=== PATIENT | male | born 1975 | race Caucasian/White ===

== ENCOUNTER 2020-06-30 12:28 | Outpatient (REF) | payer OTHER, SELFPAY ==
[2020-06-30 13:59] LABS: Hematocrit 44.2 % (42-52); Mean Corpuscular HGB Conc 31.7 g/dl (31.0-36.0); Mean Corpuscular Hemoglobin 28.3 pg (27.0-33.0); Mean Corpuscular Volume 89.3 fL (80-98); Mean Platelet Volume 9.4 fL (9.4-12.4); Platelet Count 251 X10*3/uL (160-400); Red Blood Count 4.95 X10*6/uL (4.60-5.80); Red Cell Distribution Width 12.9 % (11.0-16.0); White Blood Count 5.2 X10*3/uL (4.8-10.8)
[2020-06-30 14:28] LABS: Alanine Aminotransferase 41 U/L (0-40); Albumin Level 4.3 g/dL (3.5-5.0); Alkaline Phosphatase 53 U/L (39-117); Anion Gap 12 (12-20); Aspartate Amino Transferase 22 U/L (5-37); Bilirubin Total 1.3 mg/dL (0.0-1.0); Blood Urea Nitrogen 14 mg/dL (9-16); Carbon Dioxide 28 mmol/L (22-29); Chloride 105 mmol/L (96-108); Cholesterol 259 mg/dL; Estimated Glomerular Filt Rate > 60; Glucose Fasting 95 mg/dL (60-99); HDL Cholesterol 48 mg/dL; LDL Cholesterol Calculated 178 mg/dl; Potassium 4.8 mmol/l (3.3-5.1); Sodium 140 mmol/L (135-145); Total Protein 6.6 g/dL (6.5-8.0); Triglycerides 167 mg/dL
== END 2020-06-30 12:29 | disposition home or self-care (01) ==
LOC: HO.HMGCLDS 12:28
PROVIDERS: PCP Internal Medicine; Visit Provider Internal Medicine
DX: Z00.00 Encounter for general adult medical examination without abnormal findings (principal); M25.562 Pain in left knee
CPT/HCPCS: 36415; 80053; 80061; 85027

== ENCOUNTER 2021-03-15 12:29 | Outpatient (REF) | payer BC, SELFPAY ==
[2021-03-15 14:26] LABS: Uric Acid 6.5 mg/dL (3.4-7.0)
== END 2021-03-15 12:30 | disposition home or self-care (01) ==
LOC: HO.HMGCLDS 12:29
PROVIDERS: PCP Internal Medicine; Visit Provider Internal Medicine
DX: M10.9 Gout, unspecified (principal)
CPT/HCPCS: 36415; 84550

== ENCOUNTER 2021-03-22 09:35 | Outpatient (REF) | payer BC, SELFPAY ==
--- NOTE | ~2021-03-22 | XR_ITS ---
EXAMINATION: XR FOOT, RIGHT CLINICAL INFORMATION: Right 1st metatarsophalangeal joint pain. COMPARISON: None. TECHNIQUE: AP, lateral, and oblique views of the right foot. FINDINGS: No acute fracture or dislocation. No significant joint space narrowing or marginal osteophytes. Soft tissue swelling over the medial aspect of the 1st metatarsal head with faint cortical defects medially. Findings could represent periarticular erosions. No abnormal soft tissue calcification. XR/XR foot RT min 3V IMPRESSION: Soft tissue swelling with focal cortical erosions medial to the 1st metatarsal head. No soft tissue calcification. Findings can be seen in the setting of gout arthritis.
== END 2021-03-22 09:36 | disposition home or self-care (01) ==
LOC: HO.HMGCX 09:35
PROVIDERS: PCP Internal Medicine; Visit Provider Internal Medicine
DX: M79.674 Pain in right toe(s) (principal)
CPT/HCPCS: 73630

== ENCOUNTER 2021-07-22 08:39 | Outpatient (REF) | payer BC, SELFPAY ==
[2021-07-22 11:53] LABS: Hemoglobin 14.2 g/dl (14.0-18.0); Mean Corpuscular HGB Conc 32.3 g/dl (31.0-36.0); Mean Corpuscular Volume 86.8 fL (80.0-98.0); Mean Platelet Volume 9.7 fL (9.4-12.4); Platelet Count 284 X10*3/uL (160-400); Red Blood Count 5.07 X10*6/uL (4.60-5.80); Red Cell Distribution Width 13.2 % (11.0-16.0); White Blood Count 5.7 X10*3/uL (4.8-10.8)
[2021-07-22 12:42] LABS: Alanine Aminotransferase 59 U/L (0-40); Albumin Level 4.4 g/dL (3.5-5.0); Alkaline Phosphatase 65 U/L (39-117); Anion Gap 15 (12-20); Aspartate Amino Transferase 39 U/L (5-37); Blood Urea Nitrogen 14 mg/dL (9-16); Calcium 9.5 mg/dL (8.4-10.2); Carbon Dioxide 24 mmol/L (22-29); Chloride 105 mmol/L (96-108); Cholesterol 241 mg/dL; Estimated Glomerular Filt Rate > 60; Glucose Fasting 103 mg/dL (60-99); HDL Cholesterol 41 mg/dL; LDL Cholesterol Calculated 164 mg/dl; Potassium 4.4 mmol/L (3.3-5.1); Sodium 140 mmol/L (135-145); Total Protein 6.9 g/dL (6.5-8.0); Triglycerides 184 mg/dL
== END 2021-07-22 08:40 | disposition home or self-care (01) ==
LOC: HO.HMGCLDS 08:39
PROVIDERS: PCP Internal Medicine; Visit Provider Internal Medicine
DX: E78.5 Hyperlipidemia, unspecified (principal)
CPT/HCPCS: 36415; 80053; 80061; 85027

== ENCOUNTER 2022-05-10 07:34 | Outpatient (REF) | payer BC, SELFPAY ==
[2022-05-10 12:20] LABS: Alanine Aminotransferase 43 U/L (0-40); Albumin Level 4.5 g/dL (3.5-5.0); Alkaline Phosphatase 70 U/L (39-117); Anion Gap 17 (12-20); Aspartate Amino Transferase 32 U/L (5-37); Bilirubin Total 1.9 mg/dL (0.0-1.0); Blood Urea Nitrogen 23 mg/dL (9-16); Calcium 9.3 mg/dL (8.4-10.2); Carbon Dioxide 24 mmol/L (22-29); Chloride 107 mmol/L (96-108); Cholesterol 301 mg/dL; Estimated Glomerular Filt Rate > 60; Glucose Fasting 112 mg/dL (60-99); HDL Cholesterol 45 mg/dL; LDL Cholesterol Calculated 220 mg/dl; Potassium 4.7 mmol/L (3.3-5.1); Sodium 143 mmol/L (135-145); Total Protein 7.1 g/dL (6.5-8.0); Triglycerides 184 mg/dL
== END 2022-05-10 07:35 | disposition home or self-care (01) ==
LOC: HO.HMGCLDS 07:34
PROVIDERS: PCP Internal Medicine; Visit Provider Internal Medicine
DX: E78.5 Hyperlipidemia, unspecified (principal)
CPT/HCPCS: 36415; 80053; 80061

== ENCOUNTER 2022-07-09 11:01 | Outpatient (REF) | payer BC, SELFPAY ==
[2022-07-09 13:47] LABS: Estimated Average Glucose 111 mg/dL; Hemoglobin A1c % 5.5 %
[2022-07-09 13:52] LABS: Alanine Aminotransferase 46 U/L (0-40); Albumin Level 4.6 g/dL (3.5-5.0); Alkaline Phosphatase 70 U/L (39-117); Anion Gap 15 (12-20); Aspartate Amino Transferase 33 U/L (5-37); Bilirubin Total 2.3 mg/dL (0.0-1.0); Blood Urea Nitrogen 12 mg/dL (9-16); Calcium 9.6 mg/dL (8.4-10.2); Carbon Dioxide 26 mmol/L (22-29); Chloride 106 mmol/L (96-108); Cholesterol 236 mg/dL; Estimated Glomerular Filt Rate > 60; Glucose Fasting 96 mg/dL (60-99); HDL Cholesterol 44 mg/dL; LDL Cholesterol Calculated 157 mg/dl; Potassium 4.4 mmol/L (3.3-5.1); Sodium 143 mmol/L (135-145); Triglycerides 177 mg/dL
== END 2022-07-09 11:02 | disposition home or self-care (01) ==
LOC: HO.HMGCLDS 11:01
PROVIDERS: PCP Internal Medicine; Visit Provider Internal Medicine
DX: E78.5 Hyperlipidemia, unspecified (principal)
CPT/HCPCS: 36415; 80053; 80061; 83036

== ENCOUNTER 2022-08-02 10:18 | Outpatient (REF) | payer BC, SELFPAY | END 2022-08-02 10:19 | disposition home or self-care (01) | LOC: HO.HMGCX 10:18 | PROVIDERS: PCP Internal Medicine; Visit Provider Internal Medicine | DX: Z13.89 Encounter for screening for other disorder (principal) ==

== ENCOUNTER 2022-08-04 09:27 | Outpatient (REF) | payer BC, SELFPAY ==
--- NOTE | ~2022-08-04 | US_ITS ---
EXAMINATION: US ABDOMEN COMPLETE CLINICAL INFORMATION: Other specified abnormal findings of blood chemistry. COMPARISON: None TECHNIQUE: Real-time imaging of the abdominal viscera. FINDINGS: PANCREAS: The pancreas is obscured by overlying gas. ABDOMINAL AORTA: The proximal, mid, and distal segments are normal in caliber. INFERIOR VENA CAVA: Visualized portions are normal. LIVER: The liver is normal in size. The liver contour is normal. There is increased liver echogenicity. No focal lesion seen. No focal hepatic lesion. There is no intrahepatic biliary duct dilatation seen. GALLBLADDER: There are small echogenic lesions along the inner gallbladder wall, likely small polyps. The largest polyp measures 0.22 cm. The gallbladder is physiologically distended without evidence of stones, sludge, wall thickening or pericholecystic fluid. COMMON BILE DUCT: Normal in caliber measuring 0.39 cm in diameter. RIGHT KIDNEY: Normal. No hydronephrosis. No renal calculi or focal parenchymal lesions. The kidney measures 10.9 cm in maximum dimension. LEFT KIDNEY: Normal. No hydronephrosis. No renal calculi or focal parenchymal lesions. The kidney measures 11.1 cm in maximum dimension. SPLEEN: Normal. The spleen measures 11.3 cm in maximum dimension. FREE FLUID: None. US/US abdomen complete IMPRESSION: Mild hepatic steatosis without focal lesion. Suspect small gallbladder polyps. No echogenic calculi or wall thickening seen.
== END 2022-08-04 09:28 | disposition home or self-care (01) ==
LOC: HO.HMGCX 09:27
PROVIDERS: PCP Internal Medicine; Visit Provider Internal Medicine
DX: R79.89 Other specified abnormal findings of blood chemistry (principal)
CPT/HCPCS: 76700

== ENCOUNTER 2022-08-19 13:00 | Outpatient (RCR) | payer BC, SELFPAY ==
--- NOTE | 2022-07-22 15:08 | MHC.PT.EP ---
[facility] [place] Office [place] Office [place] Office [address] Mahogany Malik [address] [phone] F: [phone] F: [phone] F: [phone] F: [phone] Physical Therapy Plan of Care Date of Evaluation: Date of Surgery: Diagnosis: low back pain Assessment: 47 y/o M referred to PT with low back pain. He has intermittent LBP for years that is worse with lifting, reaching, and sleeping. He presents with postural dysfunction secondary to decreased muscle length of ITB/hip flexors/quads, poor posture, decreased hip/core strength, and decreased proprioceptive awareness. Recommend PT 1x/week for 5 weeks to address impairments, implement HEP, and optimize functional mobility. Frequency and Duration: The patient will be seen 1x/week for 5 weeks Short Term Goals: 3 weeks Compliant with HEP I with use of lumbar roll in sitting Improve quad length to > 100* B (IR 90*) Care Home Goals: 5 weeks I with HEP and self management of sx Demonstrate lumbar extension ROM to >/= 50% to faciliate reaching overhead with pain < 3/10 Improve B hip strength to 4+/5 to faciliate lifting Treatment Plan: Modalities to reduce pain, spasms and effusion. Manual therapy to restore motion and function. Therapeutic exercise to improve strength and flexibility. Neuromuscular re-education for posture and balance. Therapeutic activities to return to functional activities of daily living. Electronically signed by: Bri Morris PT Please sign and return to therapist. Thank you for your referral.
--- NOTE | 2022-09-19 07:10 | MHC.PT.DC ---
[facility] [place] Office [place] Office [place] Office [address] Mahogany Malik [address] [phone] F: [phone] F: [phone] F: [phone] F: [phone] Physical Therapy Discharge Report Diagnosis: low back pain Date of Surgery: Date of Evaluation: 07/22/22 Date of Discharge: 09/19/22 Treatments to Date: 4 Cancellations to Date: 1 No Shows to Date: 0 Discharge Status: Independent with HEP Discharge Summary: Pt did not f/u with further visits but at time of last attended visit, he was reporting improvements in pain and I with HEP. D/c at this time. Electronically signed by: Bri Morris PT, DPT Please sign and return to therapist. Thank you for your referral.
== END 2022-09-19 07:11 | disposition home or self-care (01) ==
LOC: HO.PTCHIC 13:00
PROVIDERS: PCP Internal Medicine; Visit Provider Internal Medicine
DX: M54.50 Low back pain, unspecified (principal)
CPT/HCPCS: 97110; 97140; 97161

== ENCOUNTER 2022-08-20 10:09 | Outpatient (REF) | payer BC, SELFPAY ==
[2022-08-20 11:32] LABS: Alanine Aminotransferase 40 U/L (0-40); Albumin Level 4.4 g/dL (3.5-5.0); Alkaline Phosphatase 69 U/L (39-117); Aspartate Amino Transferase 29 U/L (5-37); Bilirubin Direct 0.7 mg/dL (0.0-0.5); Bilirubin Total 2.8 mg/dL (0.0-1.0); Cholesterol 169 mg/dL; HDL Cholesterol 39 mg/dL; LDL Cholesterol Calculated 109 mg/dl; Total Protein 6.6 g/dL (6.5-8.0); Triglycerides 105 mg/dL
[2022-08-24 05:26] LABS: HBS Num1 0.78 mIU/mL (0-7.99); HBc Num1 0.05 S/CO (0.00-0.79); Hepatitis A Antibody IgM 0.17 Index (0-0.79); Hepatitis B Core Antibody Nonreactive (Nonreactive); ~HepC Num1 0.21 S/CO (0.00-0.79); ~Hepatitis A Antibody IgM Nonreactive (Nonreactive); ~Hepatitis B Surface Antibody NONREACTIVE (Nonreactive); ~Hepatitis C Antibody Nonreactive (Nonreactive)
[2022-08-24 06:04] LABS: HBsAGNum1 0.36 S/CO (0.00-0.99); Hepatitis B Surface Antigen Negative (Negative)
== END 2022-08-20 10:10 | disposition home or self-care (01) ==
LOC: HO.HMGCLDS 10:09
PROVIDERS: PCP Internal Medicine; Visit Provider Internal Medicine
DX: Z00.00 Encounter for general adult medical examination without abnormal findings (principal); R79.89 Other specified abnormal findings of blood chemistry
CPT/HCPCS: 36415; 80061; 80076; 86704; 86706; 86709; 86803; 87340

== ENCOUNTER → 2022-09-27 10:04 | Outpatient (BNVA) | payer BC, SELFPAY | PROVIDERS: PCP Internal Medicine; Visit Provider Nurse Practitioner Family | DX: Z13.89 Encounter for screening for other disorder (principal) ==

== ENCOUNTER 2023-02-16 10:07 | Day surgery (SDC) | payer BC, SELFPAY ==
[2023-02-14 12:59] VITALS: BMI 28.0
--- NOTE | 2023-02-15 10:35 | P.CONAN_ITS ---
Documented by User: Abeba Hewitt NP 02/15/23 10:35 HPI - Anesthesia Eval Consult details Narrative: 48yo M for Colonoscopy PMFSH Active Problems Active Problems: All Active Problems (Updated 02/14/23 @ 12:59 by Mechelle Escamilla RN) Bursitis (Acute) Lower back pain (Acute) Elevated LFTs (Acute) Hyperglycemia (Acute) Hyperlipidemia (Acute) Toe pain, right (Acute) Gout attack (Acute) Annual physical exam (Acute) Knee pain, left (Acute) Past Medical History Medical History Annual physical exam Fatty liver Gout attack Hyperlipidemia Knee pain, left Toe pain, right Family History Family History Father Heart attack Diabetes Mother HTN (hypertension) Surgical History Surgical History H/O left knee surgery Social History Social History Housing: House Are you a primary child care leader to a significant other at home: No Do you presently have visiting nurse or other home services: No Patient Tobacco Use Status: Former Tobacco user Quit Date: 10/2020 Years Smoked: 20 years e-Cigarette/Vaping Use: Never Used Have you been hit, kicked, punched, or otherwise hurt by someone within the past year? If so, by whom?: No Are you DNR?: No Advance Directives: No Advance Directives Information Provided: Yes Recently lost weight without trying: No Eating poorly because of decreased appetite: No Nutrition Risks: No Nutritional Risk Current occupational status: employed Cognitive needs: No Hearing needs: No Vision needs: No Meds Allergies Allergy/AdvReac Type Severity Reaction Status Date / Time No Known Allergies Allergy Verified 09/27/22 10:16 Exam Exam Date and Time: February 15, 2023 1035 Height,Weight and Vital Signs: Height 6 ft 2 in Weight 98.883 kg Assessment and Plan Assessment Anesthesia Assessment: Chart Reviewed Documented by User: Albert Amador MD 02/16/23 10:52 [facility] Past Medical History Medical History Annual physical exam Fatty liver Gout attack Hyperlipidemia Knee pain, left Toe pain, right Family History Family History Father Heart attack Diabetes Mother HTN (hypertension) Family history of problems with anesthesia: No Surgical History Surgical History H/O left knee surgery History of Problems with Anesthesia: No Social History Social History Housing: House Are you a primary child care leader to a significant other at home: No Do you presently have visiting nurse or other home services: No Patient Tobacco Use Status: Former Tobacco user Quit Date: 10/2020 Years Smoked: 20 years e-Cigarette/Vaping Use: Never Used Have you been hit, kicked, punched, or otherwise hurt by someone within the past year? If so, by whom?: No Are you DNR?: No Advance Directives: No Advance Directives Information Provided: Yes Recently lost weight without trying: No Eating poorly because of decreased appetite: No Nutrition Risks: No Nutritional Risk Current occupational status: employed Cognitive needs: No Hearing needs: No Vision needs: No Meds Allergies Allergy/AdvReac Type Severity Reaction Status Date / Time No Known Allergies Allergy Verified 09/27/22 10:16 Exam Airway Mallampati Class: I TM Dist: >3cm Neck ROM: Full Denture: Upper Assessment and Plan Final Anesthetic Review Family History of Problems with Anesthesia: No History of Problems with Anesthesia: No NPO: Yes ASA Class: II Final Preanesthetic Review: No Changes in Pt Med Stat, Meds/Allgs Chart Reviewed, Consent Obtained/Reviewed and Anes Risks/Benef Reviewed Patient Risk: Low Procedure Risk: Low Assessment/Block/Sedation in SS: Assess/Block/Sedation-SS Anesthetic Plan Anesthetic Plan: MAC: Disposition: Standard PACU
[2023-02-16 10:31] VITALS: BP 130/91; PULSE 75; RESP 18; TEMP 36.1; O2SAT 95
--- NOTE | 2023-02-16 10:45 | P.HPSUR_ITS ---
Pre-Procedural Eval Section A Date of Service: 02/16/23 Section B Chief Complaint: screening Relevant Family History (Specify if Yes): No Relevant Social History: None Present Medications: see Short Stay Collaborative assessment Medical History: Significant History (Fatty liver Gout attack Hyperlipidemia Knee pain, left Toe pain, right) History of Previous Operations: Relevant previous surgery/procedure and date(s) (knee suregery) Allergies: Allergies Allergy/AdvReac Type Severity Reaction Status Date / Time No Known Allergies Allergy Verified 09/27/22 10:16 Review of Systems Sugical H&P ROS: Negative: Constitution, Cardiovascular, Respiratory, Neurol ogical, Psychiatric, Hem-Onc, Allergic/Immunologic, Gastrointestinal, Genitourinary, Musculoskeletal, Integumentary, Endocrine and Eyes/Ears/Nose/Throat Exam Surgical H&P Exam: Normal: HEENT, Normal: Heart, Normal: Lungs, Normal: Extremities, Normal: Abdomen, Normal: Skin and Normal: Neurological Plan Diagnosis/Plan: Unchanged I have reviewed the history and physical and performed a pertinent physical examination on my patient. No changes have occurred unless specified. Time Spent With Patient Time: Total time managing care of this patient today ____ minutes.
--- NOTE | 2023-02-16 11:12 | W.PM.OPN ---
Operative Note Operative Note Date of Service: 02/16/23 Narrative: Operative Information Procedure Description: Colonoscopy Indication: screening Anesthesia: MAC COLONOSCOPY Instrument: Olympus variable stiffness pediatric scope 190L Colonoscopy Monitoring: Vital signs and clinical assessment, continuous EKG monitoring, Pulse oximetry, Carbon Dioxide monitoring and blood pressure monitoring were done throughout the procedure. Colon withdrawal time was 8 minutes. Procedure: The patient was placed in the left lateral decubitis position and pre-procedure medications were administered. After a digital rectal examination of the ano-rectum, the video colonoscope was inserted into the rectum and advanced through the colon to the cecum/TI. The colonoscope was slowly withdrawn in a retrograde panoramic fashion and the colon mucosa was carefully examined including a retroflexed view of the rectum. Findings and interventions are described below. Procedure Difficulty: easy Findings: Terminal Ileum-normal Cecum: diminutive polyp3-5 mm removed with cold forceps Ascending Colon: normal Transverse Colon -normal Descending Colon:normal Sigmoid Colon: normal Rectum: Retroflexion with small internal hemorrhoids, grade I Anorectum - normal Colon preparation: [place] Bowel Preparation Scale Right colon; 2 Transverse colon: 2 Left colon; 3 (0 = Unprepared colon segment with mucosa not seen due to solid stool that cannot be cleared. 1 = Portion of mucosa of the colon segment seen, but other areas of the colon segment not well seen due to staining, residual stool and/or opaque liquid. 2 = Minor amount of residual staining, small fragments of stool and/or opaque liquid, but mucosa of colon segment seen well. 3 = Entire mucosa of colon segment seen well with no residual staining, small fragments of stool or opaque liquid) Impression and Post Procedure Diagnosis: polyp internal hemorrhoids Plan: High fiber diet leaflet Avoid straining at stool, epsom salts and sitz bath, anusol supps or cream Repeat Colonoscopy in 5-7 years due to polyp or earlier if clinically indicated Above findings were reviewed with the patient and relevant handouts were provided if indicated.
[2023-02-16 11:15] VITALS: BP 108/77; PULSE 72; RESP 16; TEMP 36.1; O2SAT 98
[2023-02-16 11:30] VITALS: BP 122/90; PULSE 66; RESP 16; TEMP 36.9; O2SAT 96
== END 2023-02-16 11:59 | disposition home or self-care (01) ==
PROVIDERS: PCP Internal Medicine; Visit Provider Internal Medicine Gastroenterology
PROC: 0DJD8ZZ Inspection of Lower Intestinal Tract, Via Natural or Artificial Opening Endoscopic (ICD-10-PCS; CPT 45378; principal; 2023-02-16 11:40)
DX: Z12.11 Encounter for screening for malignant neoplasm of colon (principal); D12.0 Benign neoplasm of cecum; K64.0 First degree hemorrhoids; K76.0 Fatty (change of) liver, not elsewhere classified; M10.9 Gout, unspecified; E78.5 Hyperlipidemia, unspecified; Z87.891 Personal history of nicotine dependence
CPT/HCPCS: 45380; 88305

== ENCOUNTER → 2023-03-03 12:01 | Outpatient (BNVA) | payer BC, SELFPAY | PROVIDERS: PCP Internal Medicine; Visit Provider Nurse Practitioner Family ==

== ENCOUNTER 2023-09-02 10:17 | Outpatient (REF) | payer BC, SELFPAY ==
[2023-09-02 11:49] LABS: Alanine Aminotransferase 44 U/L (0-40); Albumin Level 4.3 g/dL (3.5-5.0); Alkaline Phosphatase 73 U/L (39-117); Anion Gap 12 (12-20); Aspartate Amino Transferase 32 U/L (5-37); Bilirubin Total 1.3 mg/dL (0.0-1.0); Blood Urea Nitrogen 12 mg/dL (9-16); Calcium 9.3 mg/dL (8.4-10.2); Carbon Dioxide 26 mmol/L (22-29); Chloride 108 mmol/L (96-108); Cholesterol 169 mg/dL (<200); Estimated Glomerular Filt Rate > 60; Glucose Fasting 99 mg/dL (60-99); HDL Cholesterol 42 mg/dL (>40); LDL Cholesterol Calculated 101 mg/dL (<100); Potassium 4.1 mmol/L (3.3-5.1); Sodium 142 mmol/L (135-145); Total Protein 6.9 g/dL (6.5-8.0); Triglycerides 132 mg/dL (<150)
[2023-09-02 11:54] LABS: Estimated Average Glucose 108 mg/dL; Hemoglobin A1c % 5.4 % (<6.0)
== END 2023-09-02 10:18 | disposition home or self-care (01) ==
LOC: HO.HMGCLDS 10:17
PROVIDERS: PCP Internal Medicine; Visit Provider Internal Medicine
DX: R73.9 Hyperglycemia, unspecified (principal); E78.5 Hyperlipidemia, unspecified
CPT/HCPCS: 36415; 80053; 80061; 83036

== ENCOUNTER 2023-09-07 13:46 | Outpatient (AMB) | payer BC, SELFPAY ==
[2023-09-07 14:25] VITALS: BP 116/74; PULSE 66; O2SAT 96; BMI 28.2
--- NOTE | 2023-09-07 14:25 | MHC.PC.OV ---
Vital Signs 09/07/23 14:25 Height 6 ft 2 in Weight 220 lb BMI 28.2 BP 116/74 Blood Pressure Location Lt brachial Position Sitting Pulse 66 Pulse Source Pulse Oximeter Pulse Oximetry (%) 96 Oxygen Delivery Method Room Air Intake Visit Reasons: PE Intake Note: Pt is here today for PE. Pt states that he would like to have a new referral placed for [place]. Allergies No Known Allergies Allergy (Verified 09/07/23 14:29) Tobacco use date assessed: 09/07/23 Dental Screening Dental Screen Date: 09/07/23 Did you have a dental visit in the last 12 months?: Yes Did you have a dental problem in the last 6 months where you did not have access to dental care?: No Was dental information given to patient?: Patient has dentist HPI PE HPI Details Patient presents for PE visit. [facility] Medical History Tubular adenoma Fatty liver Hyperlipidemia Toe pain, right Gout attack Annual physical exam Knee pain, left Surgical History Hx of colonoscopy H/O left knee surgery Family History Father Heart attack Diabetes Mother HTN (hypertension) Social History Housing: House Are you a primary medicare contact specialist to a significant other at home: No Do you presently have visiting nurse or other home services: No Patient Tobacco Use Status: Former Tobacco user Quit Date: 10/2020 Years Smoked: 20 years e-Cigarette/Vaping Use: Never Used Current occupational status: employed Cognitive needs: No Hearing needs: No Vision needs: No Questionnaire PHQ-9 Over the last 2 weeks, how often have you been bothered by any of the following problems? 1. Little interest or pleasure in doing things: not at all 2. Feeling down, depressed, or hopeless: not at all 3. Trouble falling or staying asleep, or sleeping too much: not at all 4. Feeling tired or having little energy: not at all 5. Poor appetite or overeating: not at all 6. Feeling bad about yourself - or that you are a failure or have let yourself or your family down: not at all 7. Trouble concentrating on things, such as reading the newspaper or watching television: not at all 8. Moving or speaking so slowly that other people could have noticed. Or the opposite - being so fidgety or restless that you have been moving around a lot more than usual: not at all 9. Thoughts that you would be better off or of hurting yourself in some way: not at all Total score: 0 Depression Screening Interpretation: Negative Depression Screening Done: Yes Source: Developed by Drs. Robert Patel, Teri Avila, Aj Alfonso and colleagues, with an educational chaka from [employer]. Thrive Questionnaire Date Thrive assessed: 09/07/23 I am a: Patient What is your living situation today?: I have a steady place to live Within the past 12 months, did the food you bought not last and you didn't have the money to get more?: Never true Within the past 12 months, did you worry whether your food would run out before you got money to buy more?: Never true Do you have trouble paying for medicines?: No Do you have trouble getting transportation to medical appointments?: No Do you have trouble paying your heating and electricity bill?: No Do you have trouble taking care of your child, family member or friend?: No Do you have trouble with day-to-day activities such as bathing, preparing meals, shopping, managing finances, etc.?: No Are you currently unemployed and looking for a job?: No Are you interested in more education?: No Please select the resources that you would like help with: None AUDIT C Alcohol Use Questionnaire (AUDIT-C) 1. How often do you have a drink containing alcohol?: Monthly or less 2. How many drinks containing alcohol do you have on a typical day when you are drinking?: 1 or 2 3. How often do you have six or more drinks on one occasion?: Never Total Score: 1 AZIZA-7 AMB Questionnaire AZIZA-7 Date AZIZA - 7 assessed: 09/07/23 Feeling nervous, anxious, or on edge: 0 = Not at all Not being able to stop or control worryin = Not at all Worrying too much about different things: 0 = Not at all Trouble relaxin = Not at all Being so restless that it is hard to sit still: 0 = Not at all Becoming easily annoyed or irritable: 0 = Not at all Feeling afraid as if something awful might happen: 0 = Not at all Total AZIZA-7 score (0-4 normal; 5-9 mild; 10-14 moderate; 15-21 severe): 0 Source: Developed by Drs. Robert Patel, Teri Avila, Aj Alfonso and colleagues, with an educational chaka from [employer]. Review of Systems Const All systems reviewed & are unremarkable except as noted in HPI and below Reports no additional complaints Eyes Reports no additional complaints ENT Reports no additional complaints Card Reports no additional complaints Resp Reports no additional complaints GI Reports no additional complaints Reports no additional complaints Physical exam (Primary Care) Vital Signs: Last Vital Signs Pulse 66 09/07/23 14:25 BP 116/74 09/07/23 14:25 Pulse Ox 96 09/07/23 14:25 Oxygen Delivery Method Room Air 09/07/23 14:25 BMI result Body Mass Index 28.2 Tobacco/Smoking Status: Tobacco use Status Tobacco use date assessed 09/07/23 09/07/23 14:30 Patient Tobacco Use Status Former Tobacco user 09/07/23 14:25 e-Cigarette/Vaping Use Never Used 09/07/23 14:25 PHQ-9: PHQ-9 Score PHQ-9: Total score 0 09/07/23 14:34 Depression Screening Interpretation: Negative Thrive Assessment: Date of Thrive Assessment Date Thrive assessed 09/07/23 09/07/23 14:34 Const General: no acute distress HENMT Head: Yes normal to inspection Ears: hearing grossly normal bilaterally Throat: Yes posterior oropharynx normal Neck Neck: Yes no lymphadenopathy and Yes supple Resp Effort & Inspection: normal respiratory effort Auscultation: clear to auscultation bilaterally Cardio Rhythm: regular rhythm Heart sounds: S1 normal heart sound present and S2 normal heart sound present GI Inspection: Yes normal to inspection Palpation (GI): Soft to palpation Percussion: Yes normal to percussion Auscultation: normal bowel sounds Assessment and Plan Assessment & Plan (1) Hyperlipidemia: Code(s): E78.5 - Hyperlipidemia, unspecified Plan: Continue statin (2) Annual physical exam: Code(s): Z00.00 - Encounter for general adult medical examination without abnormal findings Plan: Well-balanced diet regular physical activity discussed with the patient (3) Elevated blood pressure reading in office without diagnosis of hypertension: Code(s): R03.0 - Elevated blood-pressure reading, without diagnosis of hypertension Plan: Well-balanced low-sodium diet, regular physical activity weight loss discussed with the patient. he follow-up in 3 months for blood pressure check Orders: Referrals Podiatry Referral M10.9 - Gout, unspecified Coding Level of Care Code Est Pt Prev Care 40-64y(03901) Diagnoses Hyperlipidemia E78.5 Annual physical exam Z00.00 Elevated blood pressure reading in office without diagnosis of hypertension R03.0
== END 2023-09-07 14:55 | disposition home or self-care (01) ==
PROVIDERS: PCP Internal Medicine; Visit Provider Internal Medicine
DX: E78.5 Hyperlipidemia, unspecified (principal); Z00.00 Encounter for general adult medical examination without abnormal findings; R03.0 Elevated blood-pressure reading, without diagnosis of hypertension
CPT/HCPCS: 99396

== ENCOUNTER 2023-12-08 12:41 | Outpatient (AMB) | payer BC, SELFPAY ==
--- NOTE | 2023-12-08 12:46 | A.OFFPC_ITS ---
Vital Signs 12/08/23 12:47 Height 6 ft 2 in Weight 224 lb BMI 28.8 BP 122/80 Blood Pressure Location Lt brachial Position Sitting Pulse 70 Pulse Source Pulse Oximeter Pulse Oximetry (%) 97 Oxygen Delivery Method Room Air Intake Visit Reasons: 3 month follow up Intake Note: Pt is here today for 3 months follow up visit. Allergies No Known Allergies Allergy (Verified 12/08/23 12:49) Medication List - Last Reconciled 12/08/23 by Radha Herrera MD atorvastatin 20 mg PO DAILY Tobacco use date assessed: 12/08/23 Dental Screening Dental Screen Date: 12/08/23 Did you have a dental visit in the last 12 months?: Yes Did you have a dental problem in the last 6 months where you did not have access to dental care?: No Was dental information given to patient?: Patient has dentist HPI 3 month follow up HPI Details Pt presents for hyperlipid, stable on Atorvastatin. PFS Medical History Tubular adenoma Fatty liver Hyperlipidemia Toe pain, right Gout attack Annual physical exam Knee pain, left Surgical History Hx of colonoscopy H/O left knee surgery Family History Father Heart attack Diabetes Mother HTN (hypertension) Social History Housing: House Are you a primary continuum of care manager to a significant other at home: No Do you presently have visiting nurse or other home services: No Patient Tobacco Use Status: Former Tobacco user Quit Date: 10/2020 Years Smoked: 20 years e-Cigarette/Vaping Use: Never Used Current occupational status: employed Cognitive needs: No Hearing needs: No Vision needs: No Questionnaire Thrive Questionnaire Date Thrive assessed: 09/07/23 AUDIT C Alcohol Use Questionnaire (AUDIT-C) 1. How often do you have a drink containing alcohol?: Monthly or less 2. How many drinks containing alcohol do you have on a typical day when you are drinking?: 1 or 2 3. How often do you have six or more drinks on one occasion?: Never Total Score: 1 AZIZA-7 AMB Questionnaire AZIZA-7 Date AZIZA - 7 assessed: 09/07/23 Source: Developed by Drs. Robert Patel, Teri Avila, Aj Alfonso and colleagues, with an educational chaka from [employer]. Review of Systems Const All systems reviewed & are unremarkable except as noted in HPI and below Reports no additional complaints Eyes Reports no additional complaints ENT Reports no additional complaints Card Reports no additional complaints Resp Reports no additional complaints GI Reports no additional complaints Physical exam (Primary Care) Vital Signs: Last Vital Signs Pulse 70 12/08/23 12:47 BP 122/80 12/08/23 12:47 Pulse Ox 97 12/08/23 12:47 Oxygen Delivery Method Room Air 12/08/23 12:47 BMI result Body Mass Index 28.8 Tobacco/Smoking Status: Tobacco use Status Tobacco use date assessed 12/08/23 12/08/23 12:52 Patient Tobacco Use Status Former Tobacco user 12/08/23 12:52 e-Cigarette/Vaping Use Never Used 12/08/23 12:48 Thrive Assessment: Date of Thrive Assessment Date Thrive assessed 09/07/23 12/08/23 12:48 Const General: no acute distress HENMT Head: Yes normal to inspection Throat: Yes posterior oropharynx normal Neck Neck: Yes no lymphadenopathy and Yes supple Resp Effort & Inspection: normal respiratory effort Auscultation: clear to auscultation bilaterally Cardio Rhythm: regular rhythm Heart sounds: S1 normal heart sound present and S2 normal heart sound present Assessment and Plan Assessment & Plan (1) Gout attack: Code(s): M10.9 - Gout, unspecified Plan: monitor UA level (2) Hyperlipidemia: Code(s): E78.5 - Hyperlipidemia, unspecified Plan: Continue atorvastatin and low-cholesterol diet (3) Hyperglycemia: Code(s): R73.9 - Hyperglycemia, unspecified Plan: ADA diet regular exercise weight loss discussed with the patient, return for physical in 8 months. Orders: Orders Comprehensive [place]. Panel Fast 8 Months E78.5 - Hyperlipidemia, unspecified, M10.9 - Gout, unspecified, R73.9 - Hyperglycemia, unspecified Complete Blood Count Auto Diff 8 Months E78.5 - Hyperlipidemia, unspecified, M10.9 - Gout, unspecified, R73.9 - Hyperglycemia, unspecified Hemoglobin A1c 8 Months R73.9 - Hyperglycemia, unspecified Lipid Panel 8 Months E78.5 - Hyperlipidemia, unspecified, M10.9 - Gout, unspecified, R73.9 - Hyperglycemia, unspecified Uric Acid 8 Months E78.5 - Hyperlipidemia, unspecified, M10.9 - Gout, unspecified, R73.9 - Hyperglycemia, unspecified Coding Level of Care Code Est Pt Level 3 (37221) Diagnoses Gout attack M10.9 Hyperlipidemia E78.5 Hyperglycemia R73.9
[2023-12-08 12:47] VITALS: BP 122/80; PULSE 70; O2SAT 97; BMI 28.8
== END 2023-12-08 14:22 | disposition home or self-care (01) ==
PROVIDERS: PCP Internal Medicine; Visit Provider Internal Medicine
DX: M10.9 Gout, unspecified (principal); E78.5 Hyperlipidemia, unspecified; R73.9 Hyperglycemia, unspecified
CPT/HCPCS: 99213

== ENCOUNTER 2024-10-28 08:41 | Outpatient (REF) | payer BC, SELFPAY ==
--- OUTSIDE RECORDS SUMMARY | 2024-10-28 09:13 | XMS_ITS ---
Author Organization [facility] Address [address] [place] [address] Care Team Providers Care Information Security Manager Name Role Phone Radha Herrera MD Primary Care Provider Erica Gallagher Unavailable [phone] Allergies No Known Allergies REASON FOR VISIT pt states last pcp visit was 08/2023, Foot pain Medications Medication SIG (Take, Route, Frequency, Duration) Notes Start Date End Date Status Atorvastatin Calcium 20 MG TAKE 1 TABLET BY MOUTH DAILY Oral for 90 Active Social History Tobacco Use: Social History Observation Description Date Details (start date - stop date) Former Smoker NA - NA Tobacco Use/Smoking Question Answer Notes Are you a: former smoker Additional Findings: Tobacco Non-User Current no n-smoker Alcohol Screen Question Answer Notes Did you have a drink contain ing alcohol in the past year? Yes How often did you have a dri nk containing alcohol in the past year? Monthly or less (1 point) How many drinks did you have on a typical day when you were drinking in the past year? 1 or 2 drinks (0 point) How often did you have 6 or more drinks on one occasion in the past year? Never (0 point) Points 1 Interpretation Negative Tobacco use other than smoking: Question Answer Notes Are you an other tobacco user? No Problems Problem Type SNOMED Code ICD Code Onset Dates Problem Status W/U Status Risk Notes Problem Gout (47793696) Gout of right foot (M10.9) Active confirmed Rx drug management (4) Problem [id number] Hallux valgus of right foot (M20.11) Active confirmed Vital Signs Height 6 ft 3 in in 03/21/2024 Weight 220 lbs 03/21/2024 BMI 27.50 kg/m2 03/21/2024 Encounters Encounter Location Date Provider Diagnosis [facility] [address] [address] 03/21/2024 Erica Perez Gout of right foot M10.9 and Hallux valgus of right foot M20.11 Assessments Encounter Date Diagnosis (ICD Code) Assessment Notes Treatment Notes Treatment Clinical Notes Section Notes 03/21/2024 Gout of right foot (ICD-10 - M10.9) Rx drug management (4) Patient Educated with: GOUT.pdf (GOUT.pdf) Patient Educated with: LOW PURINE DIET.pdf (LOW PURINE DIET.pdf) 03/21/2024 Hallux valgus of right foot (ICD-10 - M20.11) 03/21/2024 Other Plan Of Treatment Treatment Notes Assessment Notes Gout of right foot Patient Educated wit h: GOUT.pdf (GOUT.pdf) Patient Educated with: LOW PURINE DIET.pdf (LOW PURINE DIET.pdf) Pending Test Test Name Order Date X ray : Foot, right 3V 03/21/2024 Next Appt Details Follow Up: prn, Reason: Progress Notes * Sreekanth HICKEY PDOB:1974 (49 yo M)Acc No.[id number]:03/21/2024 Progress Notes Patient:?Sreekanth HICKEY P Provider:?Erica Perez DPM :1975???Age:49 Y???Sex:Male Ben e:03/21/2024 Address: [address], [place], [id number] Pcp:Radha Herrera MD Subjective: * Chief Complaints: * ???Pt states last pcp visit was 08/2023Foot pain * HPI: ???Foot Pain:?Nature:?aching, swelling, tenderness, throbbing.?Location:?Great toe joint , RIGHT.?Duration:?several days; relates 2 episodes in last 3 years, most recently a few months ago.?Onset:?sudden, unknown, denies trauma.?Course:?resolved.?Aggravated:?any pressure , standing , walking.?Treatments:?rest/alter normal daily activity.? * ROS:?General/Constitutional:?Nausea?denies.?Vomiting?denies.?Hunger Thirst?denies.?Loss appetite?denies.?Chills?denies.?Fatigue?denies.?Fever?denies.?Night Sweats?denies.?Unexplained weight loss?denies.?Unexplained weight gain?denies.?HEENTM:?Dentures?denies.?Dizziness?denies.?Glasses/contacts?denies.?Retinopathy?de nies.?Blurred/double vision?denies.?TMJ?denies.?Discharge/drainage?denies.?Implants?denies.?Sore throat?denies.?Dental implants?denies.?Hard of hearing ?denies.?Difficulty chewing/swallowing/speaking?denies.?Nose bleeds?denies.?Sore mouth?denies.?Respiratory:?On Oxygen?denies.?Pneumonia/pleurisy?denies.?Bronchitis?denies.?Emphysema?denies.?C oughing?denies.?Cough blood?denies.?Shortness of breath?denies.?Wheezing?denies.?Cardiovascular:?Pacemaker?denies.?MVP?denies.?WPW?denies.?CHF?denies.?Heart attack?denies.?Septal defect?denies.?Rapid beat?denies.?Chest pain ?denies.?Atrial Fib.?denies.?Murmur/Palpitations?denies.?Gastrointestinal:?Hemorrhoids?denies.?Stomach/Abdominal pain?denies.?Dark blood stool?denies.?Irritable bowel ?denies.?Constipation?denies.?Diarrhea?denies.?Hematology:?Swelling?denies.?Clots?denies.?Varicose Veins?denies.?Bruising?denies.?Bleeding problem?denies.?Genitourinary:?Blood urine?denies.?Frequent/Painfu/urination/bladder control?denies.?Kidney stones?denies.?Infection (UTI)?denies.?Nephropathy?denies.?sex trans dis (STD)?denies.?Prostate?denies.?Musculoskeletal:?Hammertoes?denies.?Bunions?admits.?Back Pain?admits.?Muscle Cramps/ Resting?denies.?Muscle cramps / walking?denies.?Generalized aches and pains?denies.?Weakness?denies.?Integ.:?Nicholson?denies.?Scars?denies.?Corns/calluses?denies.?Ingrown nails?denies.?Painful nails?denies.?Open Sores?denies.?Rashes?denies.?Neurologic:?Difficulty sleeping?denies.?Brain disorder?denies.?Numbness?denies.?Balance trouble?denies.?Confusion?denies.?Fainting/blackouts?denies.?Tingling?denies.?Tr emors?denies.? * Medical History:? * Surgical History:?colonoscop y 2020left knee sx 1994 * Hospitalization/Major Diagno stic Procedure:?No Hospitalization History. * Family History:?Mother: aliv e, hypertension.?Father: alive, diabetes, heart attack.? * Social History:?Tobacco Use:?Tobacco Use/Smoking?Are you a:?former smoker ?Additional Findings: Tobacco Non-User?Current non-smoker ?Tobacco use other than smoking?Are you an other tobacco user??No ???Drugs/Alcohol:?Drugs?Have you used drugs other than those for medical reasons in the past 12 months??No ?Alcohol Screen?Did you have a drink containing alcohol in the past year??Yes ?How often did you have a drink containing alcohol in the past year??Monthly or less (1 point) ?How many drinks did you have on a typical day when you were drinking in the past year??1 or 2 drinks (0 point) ?How often did you have 6 or more drinks on one occasion in the past year??Never (0 point) ?Points?1 ?Interpretation?Negative ???Miscellaneous:?Caffeine: yes, 1-2 cups per day. ?Exercise: yes, basketball. ?Marital status: single. 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 * Medications:?TakingAtorvasta tin Calcium 20 MG Tablet TAKE 1 TABLET BY MOUTH DAILY Oral Medication List reviewed and reconciled with the patientTaking Atorvastatin Calcium 20 MG Tablet TAKE 1 TABLET BY MOUTH DAILY Oral Medication List reviewed and reconciled with the patient * Allergies:?N.K.D.A.yes[Aller gies Verified] Objective: * Vitals:?Ht: 6 ft 3 in, Wt: 2 20, BMI:27.50, Shoe size: 12. * Examination: ???General Examination: ?GENERAL APPEARANCE:?Reveals a pleasant, alert, well-nourished, well- developed, well hydrated individual, who demonstrates proper attention to hygiene/body habitus, and is in no acute distress, Pt serves as own?historian for office visit today.?ORIENTED:?person, place, and time.?Neurological: ?SENSORY:?Neurological exam reveals intact sensorium, pain sensation normal, vibration sensation intact, pinprick sensation is normal in the lower extremities, Pt denies, anesthesia, burning, paresthesia, tingling, B/L.?DEEP TENDON REFLEXES:?Achilles, 2/4, B/L.?Vascular: ?DP PULSES (B):?3/4, B/L.?PT PULSES (B):?3/4, B/L.?CAPILLARY FILL TIME:?immediate, all digits, B/L.?TROPHIC CONDITION-TEXTURE/ELASTICITY/TURGOR/HAIR GROWTH (B):?normal, B/L.?TEMPERTURE GRADIENT (C):?warm to cool, proximal to distal, B/L.?PIGMENTATION:?normal, B/L.?EDEMA (C):?absent, B/L.?Dermatologic: ?SKIN FINDINGS:?Skin exam reveals normal texture, elasticity, and turgor. There are no masses. The interspaces are clear.?Orthopedic: ?MUSCLE STRENGTH:?5/5 all groups in a symmetrical fashion , B/L.?GAIT ABNORMALITY:? antalgic.?BUNION:?Medially prominent 1st MPJ , (-) Pain on palpation or inflammation , RIGHT.?X-Rays - IMAGING REPORT: ?Clinical Indication(s):? Evaluate for Fracture, Evaluate for Osteomyelitis.?Views:? 3 views of Foot, AP, LAT, MO.?Findings:?normal bone and soft tissue density consistent for patients age and sex.?HAV:? there is no Unruly sign, increased First Intermetatarsal angle and Hallux Abductus angle consistent with Bunion deformity noted.?Fracture:?Negative fractures identified.? Assessment: * Assessment: 1.?Hallux valgus of right fo ot - M20.11???2.?Gout of right foot - M10.9???Specify :Acute problem, Complicated w/ Multiple Tx Options(4)???Notes :Rx drug management (4)??? Plan: * Treatment: * Imaging:? * ?Imaging: X ray : Foot, right 3V * Procedure Codes:?74620 X-RAY EXAM OF RIGHT FOOT 3V, Modifiers: 26 , RT * Preventive Medicine:? ??Counseling:?Discussion:?-03: Office or other outpatient visit for the evaluation and management of a new patient, which required a medically appropriate history and/or examination and LOW level of DECISION MAKING for: 1 STABLE ACUTE UNCOMPLICATED PROBLEM, 2 OR MORE MINOR PROBLEMS, OR 1 STABLE CHRONIC PROBLEM, THAT POSE(S) A LOW RISK FOR MORBIDITY/MORTALITY. The visit on the day of the encounter encompassed interpreting the data and educating the patient as to the nature of their condition, treatment options available according to their individual PMH, meds, allergies, and overall health/living conditions, as well as any potential risks or complications that may occur from a failure to adhere to, and participate in, the recommended course of therapy. The discussion included a complete verbal, and/or written explanation of the examination results, any x-rays taken, the proposed diagnosis, and outline of the treatment plan. A schedule for future care needs was also explained. The patient verbalized an understanding of the instructions at this time and agreed to be an active participant in their treatment. If the patient should think of any questions or concerns after the visit, I have encouraged the patient to call the office.?Gout:?I explained to the patient the possible etiologies for Gout, including genetic, excess dietary protein, excess dietary sugar, alcohol, diuretic medications, dehydration, and/or previous surgery. An information sheet re: the foods to enjoy as well as avoid was dispensed and detailed at the time of visit. We discussed the risks/benefits of all the different treatment options for Gout including: No treatment at all, Rest, Ice, NSAIDs(only if well tolerated after meals), Oral steroids, Colchicine, New/supportive Shoegear, Foot/Ankle AFO Bracing, Arch support/shoe inserts, Custom orthoses, Topical analgesics including Aspercream/Voltaren gel/Custom compounded combination therapy, and Dietary modification. Advantages and disadvantages of each option were discussed and the patients questions re: shoegear, custom vs prefabricated inserts, activity level, PO vs Topical medications (and their respective potential complications/drug interactions/side effects including the possible interaction with statin medications ), diet, and consistency in home treatment regimens for optimal success were answered to their verbally confirmed satisfaction, Diet modification, Handout given and reviewed.?X-rays:?Discussed and reviewed the X-rays with the patient. We discussed how the findings relate to the patients symptoms/complaints. Answered any and all questions..? * Follow Up:?prn * Images: * Sign off status: Completed true * Provider:?Erica Perez DPM Date:? Generated for Ang stockton/Vida/Mary on:?10/28/2024 09:13 AM EST History and Physical Notes * HPI (History of Present Illness) Category Sub-Category Detail Notes Category Not es Foot Pain Nature: aching, swelling, tenderness , throbbing Location: Great toe joint , RI GHT Duration: several days; relate s 2 episodes in last 3 years, most recently a few months ago Onset: sudden, unknown, den ies trauma Course: resolved Aggravated: any pressure , stand ing , walking Treatments: rest/alter normal da sanjuana activity Examination Category Sub-Category Detail Notes Category Not es Neurological SENSORY: Neurological exa m reveals intact sensorium, pain sensation normal, vibration sensation intact, pinprick sensation is normal in the lower extremities, Pt denies, anesthesia, burning, paresthesia, tingling, B/L DEEP TENDON REFLEXES: Achilles, 2/4, B/L Dermatologic SKIN FINDINGS: Skin exam reveal s normal texture, elasticity, and turgor. There are no masses. The interspaces are clear Orthopedic GAIT ABNORMALITY: antalgic BUNION: Medially prominent 1 st MPJ , (-) Pain on palpation or inflammation , RIGHT MUSCLE STRENGTH: 5/5 all groups in a symmetrical fashion , B/L General Examination GENERAL APPEARANCE: Reveals a pleasant, alert, well- nourished, well-developed, well hydrated individual, who demonstrates proper attention to hygiene/body habitus, and is in no acute distress, Pt serves as own historian for office visit today ORIENTED: person, place, and t anish Vascular DP PULSES (B): 3/4, B/L PT PULSES (B): 3/4, B/L CAPILLARY FILL TIME: immediate, all digi ts, B/L TEMPERTURE GRADIENT (C): warm to cool, p roximal to distal, B/L TROPHIC CONDITION-TEXTURE/ELASTICITY/TURGOR/HAIR GROWTH (B): normal, B/L EDEMA (C): absent, B/L PIGMENTATION: normal, B/L X-Rays - IMAGING REPORT Findings: normal b one and soft tissue density consistent for patients age and sex Fracture: Negative fractures i dentified HAV: there is no Unruly s ign, increased First Intermetatarsal angle and Hallux Abductus angle consistent with Bunion deformity noted Views: 3 views of Foot, AP, LAT, MO Clinical Indication(s): Evaluate for Fra cture, Evaluate for Osteomyelitis
--- OUTSIDE RECORDS SUMMARY | 2024-10-28 09:13 | XMS_ITS | Patient Health Record ---
Author Organization [facility] Address [address] [place] [address] Care Team Providers Care Track Broom Operator Name Role Phone Radha Herrera MD Primary Care Provider Erica Gallagher Unavailable [phone] Allergies No Known Allergies Reason For Referral No Information Medications Medication SIG (Take, Route, Frequency, Duration) [...] Problem Status W/U Status Risk Notes Problem 4558108041 Hallux valgus of right foot (M20.11) Active confirmed Problem Gout (28594906) Gout of right foot (M10.9) Active confirmed Rx drug management (4) Vital Signs Height 6 ft 3 in in 03/21/2024 Weight 220 lbs 03/21/2024 BMI 27.50 kg/m2 03/21/2024 Encounters Encounter Location Date Provider Diagnosis [address] [facility] [place] [address] 03/21/2024 Erica Perez Gout of right foot M10.9 and Hallux valgus of right foot M20.11 [facility] [address] [place] [address] [facility] [place] [address] 12/14/2023 Erica Perez Assessments Encounter Date Diagnosis (ICD Code) Assessment Notes Treatment Notes Treatment Clinical Notes Section Notes 03/21/2024 Hallux valgus of right foot (ICD-10 - M20.11) 03/21/2024 Gout of right foot (ICD-10 - M10.9) Rx drug management (4) Patient Educated with: GOUT.pdf (GOUT.pdf) Patient Educated with: LOW PURINE DIET.pdf (LOW PURINE DIET.pdf) 03/21/2024 Other Plan Of Treatment Pending Test Test Name Order Date X ray : Foot, right 3V 03/21/2024 Insurance Providers Payer Name Payer Address Payer Phone Subscriber Number Group Number Insured Name Patient Relationship to Insured Coverage Start Date Coverage End Date [facility] [address] [place] [phone] Sreekanth Shahid Self - patient is the insured Medical (General) History Medical History History ICD Code Fatty liver hyperlipidemia tubular adenoma Gout toe pain, right knee pain, left Joint implants/screws Surgical History Surgery Date(Month/Year) colonoscopy 2019 left knee sx 1994
--- OUTSIDE RECORDS SUMMARY | 2024-10-28 09:13 | XMS_ITS ---
Author Organization [facility] Address [address] [place] [address] Care Team Providers Care Fourdrinier Tender Name Role Phone Radha Herrera MD Primary Care Provider Erica Gallagher Unavailable [phone] Social History Tobacco Use: Social History Observation [...] past year? Monthly or less (1 point) Points 1 Interpretation Negative Tobacco use other than smoking: Question Answer Notes Are you an other tobacco user? No Vital Signs Height 6 ft 2 in in 12/14/2023 Weight 220 lbs 12/14/2023 BMI 28.24 kg/m2 12/14/2023 Encounters Encounter Location Date Provider Diagnosis [address] [address] 12/14/2023 Erica Perez Plan Of Treatment No Information Progress Notes * Sreekanth HICKEY PDOB:1974 (49 yo M)Acc No.[id number]:12/14/2023 Progress Notes Patient:?Sreekanth HICKEY Provider:?Erica Perez DPM :1975???Age:48 Y???Sex:Male Ben e:12/14/2023 Address: [address], [phone] Pcp:Radha Herrera MD Subjective: * Chief Complaints: * ??? * ROS:?General/Constitutional:?Nausea?denies.?Vomiting?denies.?Hunger Thirst?denies.?Loss appetite?denies.?Chills?denies.?Fatigue?denies.?Fever?denies.?Night Sweats?denies.?Unexplained weight loss?denies.?Unexplained weight gain?denies.?HEENTM:?Dentures?denies.?Dizziness?denies.?Glasses/contacts?denies.?Retinopathy?de nies.?Blurred/double vision?denies.?TMJ?denies.?Discharge/drainage?denies.?Implants?denies.?Sore throat?denies.?Dental implants?denies.?Hard of hearing ?denies.?Difficulty chewing/swallowing/speaking?denies.?Nose bleeds?denies.?Sore mouth?denies.?Respiratory:?On Oxygen?denies.?Pneumonia/pleurisy?denies.?Bronchitis?denies.?Emphysema?denies.?C oughing?denies.?Cough blood?denies.?Shortness of breath?denies.?Wheezing?denies.?Cardiovascular:?Pacemaker?denies.?MVP?denies.?WPW?denies.?CHF?denies.?Heart attack?denies.?Septal defect?denies.?Rapid beat?denies.?Chest pain ?denies.?Atrial Fib.?denies.?Murmur/Palpitations?denies.?Gastrointestinal:?Hemorrhoids?denies.?Stomach/Abdominal pain?denies.?Dark blood stool?denies.?Irritable bowel ?denies.?Constipation?denies.?Diarrhea?denies.?Hematology:?Swelling?denies.?Clots?denies.?Varicose Veins?denies.?Bruising?denies.?Bleeding problem?denies.?Genitourinary:?Blood urine?denies.?Frequent/Painfu/urination/bladder control?denies.?Kidney stones?denies.?Infection (UTI)?denies.?Nephropathy?denies.?sex trans dis (STD)?denies.?Prostate?denies.?Musculoskeletal:?Hammertoes?denies.?Bunions?admits.?Back Pain?admits.?Muscle Cramps/ Resting?denies.?Muscle cramps / walking?denies.?Generalized aches and pains?denies.?Weakness?denies.?Integ.:?Nicholson?denies.?Scars?denies.?Corns/calluses?denies.?Ingrown nails?denies.?Painful nails?denies.?Open Sores?denies.?Rashes?denies.?Neurologic:?Difficulty sleeping?denies.?Brain disorder?denies.?Numbness?denies.?Balance trouble?denies.?Confusion?denies.?Fainting/blackouts?denies.?Tingling?denies.?Tr emors?denies.? * Medical History:?Fatty liver , Hyperlipidemia, Tubular adenoma, Gout, Toe pain, right, Knee pain, left, Joint implants/screws. * Surgical History:?colonoscop y 2019, left knee sx 1994. * Family History:?Mother: aliv e, hypertension.?Father: alive, [...] the past year??Monthly or less (1 point) ?Points?1 ?Interpretation?Negative ???Miscellaneous:?Caffeine: yes, 1-2 cups per day. ?Exercise: yes, basketball. ?Marital status: single. 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 Objective: * Vitals:?Ht: 6 ft 2 in, Wt:22 0, BMI:28.24, Shoe size: 12, Ht-cm: 187.96 cm, Wt- k.79 kg. Assessment: Plan: * Treatment: * Images: * The named appointment provid er may or may not be the originator of this progress note, and it is not deemed complete until electronically signed by the appointment provider. Sign off status: Pending * Provider:?Erica Perez DPM Date:?07/2024 Generated for Ang stockton/Vida/Francisitting on:?10/28/2024 09:13 AM EST
--- OUTSIDE RECORDS SUMMARY | 2024-10-28 09:13 | XMS_ITS ---
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 Generated for Printi ng/Fagalg/eTransmitting on:?10/28/2024 09:13 AM EST
[2024-10-28 10:25] LABS: MANUAL DIFF FLAG NO
[2024-10-28 10:36] LABS: Basophils Percent Auto 0.6 % (0-2); Eosinophils Absolute Auto 0.2 X10*3/uL (0.0-0.4); Eosinophils Percent Auto 3.6 % (0-4); Hematocrit 44.4 % (42.0-52.0); Hemoglobin 14.2 g/dl (14.0-18.0); Imm Gran Abs Auto 0.02 X10*3/uL (0.00-0.03); Imm Gran Pct Auto 0.4 % (0.0-0.4); Lymphocytes Absolute Auto 1.7 X10*3/uL (1.2-4.9); Mean Corpuscular Hemoglobin 27.9 pg (27.0-33.0); Mean Corpuscular Volume 87.2 fL (80.0-98.0); Mean Platelet Volume 9.7 fL (9.4-12.4); Monocytes Absolute Auto 0.5 X10*3/uL (0.1-1.2); Monocytes Percent Auto 9.2 % (2-11); Neutrophils Absolute Auto 2.9 x10*3/uL (2.0-8.3); Neutrophils Percent Auto 54.2 % (45-73); Platelet Count 258 X10*3/uL (160-400); Red Blood Count 5.09 X10*6/uL (4.60-5.80); Red Cell Distribution Width 13.6 % (11.0-16.0); White Blood Count 5.3 X10*3/uL (4.8-10.8)
[2024-10-28 11:04] LABS: Estimated Average Glucose 111 mg/dL; Hemoglobin A1c % 5.5 % (<6.0); Total Hemoglobin (HGBA1C) 3749.9536 umol/L
[2024-10-28 11:29] LABS: Alanine Aminotransferase 37 U/L (0-40); Albumin Level 4.4 g/dL (3.5-5.0); Alkaline Phosphatase 79 U/L (39-117); Anion Gap 13 (12-20); Aspartate Amino Transferase 31 U/L (5-37); Bilirubin Total 1.6 mg/dL (0.0-1.0); Blood Urea Nitrogen 20 mg/dL (9-16); Calcium 9.3 mg/dL (8.4-10.2); Carbon Dioxide 22 mmol/L (22-29); Chloride 112 mmol/L (96-108); Cholesterol 190 mg/dL (<200); Estimated Glomerular Filt Rate > 60; Glucose Fasting 110 mg/dL (60-99); HDL Cholesterol 40 mg/dL (>40); LDL Cholesterol Calculated 116 mg/dL (<100); Sodium 143 mmol/L (135-145); Total Protein 7.3 g/dL (6.5-8.0); Triglycerides 171 mg/dL (<150); Uric Acid 8.1 mg/dL (3.4-7.0)
== END 2024-10-28 08:42 | disposition home or self-care (01) ==
LOC: HO.HMGCLDS 08:41
PROVIDERS: PCP Internal Medicine; Visit Provider Internal Medicine
DX: R73.9 Hyperglycemia, unspecified (principal); E78.5 Hyperlipidemia, unspecified; M10.9 Gout, unspecified
CPT/HCPCS: 36415; 80053; 80061; 83036; 84550; 85025

== ENCOUNTER 2024-10-30 14:09 | Outpatient (AMB) | payer BC, SELFPAY ==
[2024-10-30 14:27] VITALS: BP 136/90; PULSE 87; RESP 17; O2SAT 97; BMI 30.3
--- NOTE | 2024-10-30 14:27 | MHC.PC.OV ---
Vital Signs 10/30/24 14:27 Height 6 ft 2 in Weight 236 lb BMI 30.3 BP 136/90 H Blood Pressure Location Lt brachial Position Sitting Respiration 17 Pulse 87 Pulse Source Pulse Oximeter Pulse Oximetry (%) 97 Oxygen Delivery Method Room Air Intake Visit Reasons: PE Intake Note: Pt is here today for PE. Allergies No Known Allergies Allergy (Verified 10/30/24 14:28) Medication List - Last Reconciled 10/30/24 by Radha Herrera MD atorvastatin 20 mg PO DAILY Tobacco use date assessed: 10/30/24 Dental Screening Dental Screen Date: 10/30/24 Did you have a dental visit in the last 12 months?: Yes Did you have a dental problem in the last 6 months where you did not have access to dental care?: No Was dental information given to patient?: Patient has dentist HPI PE HPI Details Patient presents for physical PFSH Medical History Tubular adenoma Fatty liver Hyperlipidemia Toe pain, right Gout attack Annual physical exam Knee pain, left Surgical History Hx of colonoscopy H/O left knee surgery Family History Father Heart attack Diabetes Mother HTN (hypertension) Social History Housing: House Are you a primary respiratory care practitioner to a significant other at home: No Do you presently have visiting nurse or other home services: No Patient Tobacco Use Status: Former Tobacco user Years Smoked: 20 years e-Cigarette/Vaping Use: Never Used service: No Current occupational status: employed Cognitive needs: No Hearing needs: No Vision needs: No Questionnaire PHQ-9 Over the last 2 weeks, how often have you been bothered by any of the following problems? 1. Little interest or pleasure in doing things: not at all 2. Feeling down, depressed, or hopeless: not at all 3. Trouble falling or staying asleep, or sleeping too much: not at all 4. Feeling tired or having little energy: not at all 5. Poor appetite or overeating: not at all 6. Feeling bad about yourself - or that you are a failure or have let yourself or your family down: not at all 7. Trouble concentrating on things, such as reading the newspaper or watching television: not at all 8. Moving or speaking so slowly that other people could have noticed. Or the opposite - being so fidgety or restless that you have been moving around a lot more than usual: not at all 9. Thoughts that you would be better off or of hurting yourself in some way: not at all Total score: 0 Depression Screening Interpretation: Negative Depression Screening Done: Yes 57088 - PHQ-9 Billing: Yes Source: Developed by Drs. Robert Patel, Teri Avila, Aj Alfonso and colleagues, with an educational chaka from [employer]. Thrive Questionnaire Date Thrive assessed: 10/30/24 I am a: Patient What is your living situation today?: I have a steady place to live Within the past 12 months, did the food you bought not last and you didn't have the money to get more?: Never true Within the past 12 months, did you worry whether your food would run out before you got money to buy more?: Never true Do you have trouble paying for medicines?: No Do you have trouble getting transportation to medical appointments?: No Do you have trouble paying your heating and electricity bill?: No Do you have trouble taking care of your child, family member or friend?: No Do you have trouble with day-to-day activities such as bathing, preparing meals, shopping, managing finances, etc.?: No Are you currently unemployed and looking for a job?: No Are you interested in more education?: No Please select the resources that you would like help with: None Currently or been in a relationship where the following occur: No concerns reported THRIVE Score: 0 AUDIT C Alcohol Use Questionnaire (AUDIT-C) 1. How often do you have a drink containing alcohol?: 2-3 times a week 2. How many drinks containing alcohol do you have on a typical day when you are drinking?: 3 or 4 3. How often do you have six or more drinks on one occasion?: Weekly Total Score: 7 AZIZA-7 AMB Questionnaire AZIZA-7 Date AZIZA - 7 assessed: 10/30/24 Feeling nervous, anxious, or on edge: 0 = Not at all Not being able to stop or control worryin = Not at all Worrying too much about different things: 0 = Not at all Trouble relaxin = Not at all Being so restless that it is hard to sit still: 0 = Not at all Becoming easily annoyed or irritable: 0 = Not at all Feeling afraid as if something awful might happen: 0 = Not at all Total AZIZA-7 score (0-4 normal; 5-9 mild; 10-14 moderate; 15-21 severe): 0 Source: Developed by Drs. Robert Patel, Teri Avila, Aj Alfonso and colleagues, with an educational chaka from [employer]. AZIZA-7 Assessment Billing AZIZA-7 Assessment Tool: AZIZA-7 Assessment 39287 Review of Systems Const All systems reviewed & are unremarkable except as noted in HPI and below Reports no additional complaints Eyes Reports no additional complaints ENT Reports no additional complaints Card Reports no additional complaints Resp Reports no additional complaints GI Reports no additional complaints Reports no additional complaints Physical exam (Primary Care) Vital Signs: Last Vital Signs Pulse 87 10/30/24 14:27 Resp 17 10/30/24 14:27 BP 136/90 H 10/30/24 14:27 Pulse Ox 97 10/30/24 14:27 Oxygen Delivery Method Room Air 10/30/24 14:27 BMI result Body Mass Index 30.3 Tobacco/Smoking Status: Tobacco use Status Tobacco use date assessed 10/30/24 10/30/24 14:28 Patient Tobacco Use Status Former Tobacco user 10/30/24 14:28 e-Cigarette/Vaping Use Never Used 10/30/24 14:28 PHQ-9: PHQ-9 Score PHQ-9: Total score 0 10/30/24 15:38 Depression Screening Interpretation: Negative Thrive Assessment: Date of Thrive Assessment Date Thrive assessed 10/30/24 10/30/24 14:28 Currently or been in a relationship where the following occur: No concerns reported Const General: no acute distress HENMT Head: Yes normal to inspection Ears: hearing grossly normal bilaterally Mouth: Normal oral and palatal mucosa present Throat: Yes posterior oropharynx normal Eyes General: appearance normal, both eyes and all related structures Neck Neck: Yes no lymphadenopathy and Yes supple Resp Effort & Inspection: normal respiratory effort Auscultation: clear to auscultation bilaterally Cardio Rhythm: regular rhythm Heart sounds: S1 normal heart sound present and S2 normal heart sound present GI Inspection: Yes normal to inspection Palpation (GI): Soft to palpation Percussion: Yes normal to percussion Auscultation: normal bowel sounds Coding Level of Care Code Est Pt Prev Care 40-64y(79171) Diagnoses Hyperlipidemia E78.5 Hyperglycemia R73.9 Elevated blood pressure reading in office without diagnosis of hypertension R03.0 Annual physical exam Z00.00 Additional Codes AZIZA-7 Assessment Billing - AZIZA-7 Assessment Tool: AZIZA-7 Assessment 72413 ([id number]) PHQ-9 - 70394 - PHQ-9 Billing: Yes ([id number]) Assessment & Plan Assessment & Plan (1) Hyperlipidemia: Code(s): E78.5 - Hyperlipidemia, unspecified Category: Medical Plan: Low-cholesterol diet increase physical activity weight loss discussed with the patient. (2) Hyperglycemia: Code(s): R73.9 - Hyperglycemia, unspecified Category: Medical Plan: ADA diet increase exercise weight loss discussed with the patient follow-up in 3 months with a fasting labs before (3) Elevated blood pressure reading in office without diagnosis of hypertension: Code(s): R03.0 - Elevated blood-pressure reading, without diagnosis of hypertension Category: Medical Plan: Low-sodium diet increase physical activity weight loss discussed with the patient follow-up in 3 months (4) Annual physical exam: Code(s): Z00.00 - Encounter for general adult medical examination without abnormal findings Category: Medical Plan: Well-balanced diet regular exercise discussed with the patient he is up-to-date with colonoscopy Orders: Orders Hemoglobin A1c 3 Months E78.5 - Hyperlipidemia, unspecified, R73.9 - Hyperglycemia, unspecified Comprehensive [place]. Panel Fast 3 Months E78.5 - Hyperlipidemia, unspecified, R73.9 - Hyperglycemia, unspecified Lipid Panel 3 Months E78.5 - Hyperlipidemia, unspecified, R73.9 - Hyperglycemia, unspecified
--- OUTSIDE RECORDS SUMMARY | 2024-10-30 17:27 | XMS_ITS ---
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 Generated for Printi ng/Fagalg/eTransmitting on:?10/30/2024 05:27 PM EST
--- OUTSIDE RECORDS SUMMARY | 2024-10-30 17:27 | XMS_ITS | Patient Health Record ---
Author Organization [facility] Address [address] [place] [address] Care Team Providers Care Lighting Fixtures Decorator Name Role Phone Radha Herrera MD Primary Care Provider Erica Gallagher Unavailable [phone] Allergies No Known Allergies Reason For Referral [...] Problem Status W/U Status Risk Notes Problem 4601871021 Hallux valgus of right foot (M20.11) Active confirmed Problem Gout (70750919) Gout of right foot (M10.9) Active confirmed Rx drug management (4) Vital Signs Height 6 ft 3 in in 03/21/2024 Weight 220 lbs 03/21/2024 BMI 27.50 kg/m2 03/21/2024 Encounters Encounter Location Date Provider Diagnosis [address] [facility] [place] [address] 03/21/2024 Erica Perez Gout of right foot M10.9 and Hallux valgus of right foot M20.11 [facility] [address] [place] [address] 12/08/20[facility] [place] [address] 12/14/2023 Erica Perez Assessments Encounter Date Diagnosis [...] Insured Coverage Start Date Coverage End Date [facility] All Others [address] [place] [address] Sreekanth Shahid Self - patient is the insured Medical (General) History Medical History History ICD Code Fatty liver hyperlipidemia tubular adenoma Gout toe pain, right knee pain, left Joint implants/screws Surgical History Surgery Date(Month/Year) colonoscopy 2019 left knee sx 1994
--- OUTSIDE RECORDS SUMMARY | 2024-10-30 17:27 | XMS_ITS ---
Author Organization [facility] Address [address] [place] [address] Care Team Providers Care Planting Machine Crewman Name Role Phone Radha Herrera MD Primary Care Provider Erica Gallagher Unavailable [phone] Allergies No Known Allergies REASON FOR VISIT [...] Status W/U Status Risk Notes Problem Gout (74334487) Gout of right foot (M10.9) Active confirmed Rx drug management (4) Problem 1860024621 Hallux valgus of right foot (M20.11) Active confirmed Vital Signs Height 6 ft 3 in in 03/21/2024 Weight 220 lbs 03/21/2024 BMI 27.50 kg/m2 03/21/2024 Encounters Encounter Location Date Provider Diagnosis [facility] [address] [address] 03/21/2024 Erica Perez Gout of right foot [...] * Sreekanth HICKEY PDOB:1974 (49 yo M)Acc No.[id number]:03/21/2024 Progress Notes Patient:?Sreekanth HICKEY P Provider:?Erica Perez DPM :1975???Age:49 Y???Sex:Male Ben e:03/21/2024 Address: [address] [place] Pcp:Radha Herrera MD Subjective: * Chief Complaints: [...] yes, basketball. ?Marital status: single. 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 * Medications:?TakingAtorvasta tin Calcium 20 MG Tablet [...] ray : Foot, right 3V * Procedure Codes:?41889 X-RAY EXAM OF RIGHT FOOT 3V, Modifiers: [...] Perez DPM Date:? Generated for Ang stockton/Vida/Mary on:?10/30/2024 05:27 PM EST History and Physical Notes * HPI [...]
--- OUTSIDE RECORDS SUMMARY | 2024-10-30 17:28 | XMS_ITS ---
Author Organization [facility] Address [address] [place] [address] Care Team Providers Care Mill Stenciler Name Role Phone Radha eHrrera MD Primary Care Provider Erica Gallagher Unavailable [phone] Social History Tobacco Use: Social History Observation [...] 12/14/2023 Encounters Encounter Location Date Provider Diagnosis [address] [address] 12/14/2023 Erica Perez Plan Of Treatment No Information Progress Notes * Sreekanth HICKEY PDOB:1974 (49 yo M)Acc No.[id number]:12/14/2023 Progress Notes Patient:?Sreekanth HICKEY Provider:?Erica Perez DPM :1975???Age:48 Y???Sex:Male Bne e:12/14/2023 Address: [address], [place] Pcp:Radha Herrera MD Subjective: * Chief Complaints: [...] yes, basketball. ?Marital status: single. 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 Objective: * Vitals:?Ht: 6 ft 2 in, [...] Provider:?Erica Perez DPM Date:?07/2024 Generated for Ang stockton/Vida/Mary on:?10/30/2024 05:27 PM EST
== END 2024-10-30 15:11 | disposition home or self-care (01) ==
PROVIDERS: PCP Internal Medicine; Visit Provider Internal Medicine
DX: E78.5 Hyperlipidemia, unspecified (principal); R73.9 Hyperglycemia, unspecified; R03.0 Elevated blood-pressure reading, without diagnosis of hypertension; Z00.00 Encounter for general adult medical examination without abnormal findings

== ENCOUNTER → 2024-10-30 14:09 | Outpatient (BNVA) | payer BC, SELFPAY | PROVIDERS: PCP Internal Medicine; Visit Provider Internal Medicine | DX: Z00.00 Encounter for general adult medical examination without abnormal findings (principal); E78.5 Hyperlipidemia, unspecified; R73.9 Hyperglycemia, unspecified; R03.0 Elevated blood-pressure reading, without diagnosis of hypertension | CPT/HCPCS: 96127 ==

== ENCOUNTER 2025-01-24 14:11 | Outpatient (REF) | payer BC, SELFPAY ==
--- OUTSIDE RECORDS SUMMARY | 2025-01-24 14:13 | XMS_ITS | Patient Health Record ---
Author Organization [facility] Address [address] [place] [address] Care Team Providers Care Assembler Metal Building Name Role Phone Radha Herrera MD Primary Care Provider Erica Gallagher Unavailable [phone] Allergies No Known Allergies Reason For Referral [...] Problem Status W/U Status Risk Notes Problem [id number] Hallux valgus of right foot (M20.11) Active confirmed Problem Gout of right foot (M10.9) Active confirmed Rx drug management (4) Vital Signs Height 6 ft 3 in in 03/21/2024 Weight 220 lbs 03/21/2024 BMI 27.50 kg/m2 03/21/2024 Encounters Encounter Location Date Provider Diagnosis [facility] [address] [place] [address] 03/21/2024 Erica Perez Gout of right foot [...] Insured Coverage Start Date Coverage End Date [employer] [address] [place] [address] Sreekanth Shahid Self - patient is the insured Medical (General) History Medical History History ICD Code Fatty liver hyperlipidemia tubular adenoma Gout toe pain, right knee pain, left Joint implants/screws Surgical History Surgery Date(Month/Year) colonoscopy 2019 left knee sx 1994
[2025-01-24 17:05] LABS: Estimated Average Glucose 117 mg/dL; Hemoglobin A1C 145.9601 umol/L; Hemoglobin A1c % 5.7 % (<6.0); Total Hemoglobin (HGBA1C) 3812.1296 umol/L
[2025-01-24 17:36] LABS: Albumin Level 4.6 g/dL (3.5-5.0); Alkaline Phosphatase 74 U/L (39-117); Anion Gap 11 (12-20); Aspartate Amino Transferase 32 U/L (5-37); Bilirubin Total 1.8 mg/dL (0.0-1.0); Blood Urea Nitrogen 14 mg/dL (9-16); Calcium 9.5 mg/dL (8.4-10.2); Carbon Dioxide 27 mmol/L (22-29); Chloride 108 mmol/L (96-108); Cholesterol 216 mg/dL (<200); Estimated Glomerular Filt Rate > 60; Glucose Fasting 94 mg/dL (60-99); HDL Cholesterol 44 mg/dL (>40); LDL Cholesterol Calculated 129 mg/dL (<100); Potassium 3.9 mmol/L (3.3-5.1); Sodium 142 mmol/L (135-145); Total Protein 7.1 g/dL (6.5-8.0); Triglycerides 217 mg/dL (<150)
[2025-01-24 18:39] LABS: Alanine Aminotransferase 56 U/L (0-40)
== END 2025-01-24 14:12 | disposition home or self-care (01) ==
LOC: HO.HMGCLDS 14:11
PROVIDERS: PCP Internal Medicine; Visit Provider Internal Medicine
DX: E78.5 Hyperlipidemia, unspecified (principal); R73.9 Hyperglycemia, unspecified
CPT/HCPCS: 36415; 80053; 80061; 83036

== ENCOUNTER 2025-01-28 09:33 | Outpatient (AMB) | payer BC, SELFPAY ==
--- NOTE | 2025-01-28 09:36 | A.OFFPC_ITS ---
Vital Signs 01/28/25 09:38 Height 6 ft 2 in Weight 232 lb BMI 29.8 BP 124/82 Blood Pressure Location Rt brachial Position Sitting Respiration 18 Pulse 77 Pulse Source Pulse Oximeter Temp 98.2 F Temp Source Oral Pulse Oximetry (%) 98 Oxygen Delivery Method Room Air Intake Visit Reasons: 3m follow up Intake Note: Pt is here today for 3 months follow up visit. Allergies No Known Allergies Allergy (Verified 01/28/25 09:51) Medication List - Last Reconciled 01/28/25 by Radha Herrera MD atorvastatin 20 mg PO DAILY Tobacco use date assessed: 10/30/24 Dental Screening Dental Screen Date: 10/30/24 HPI 3m follow up HPI Details Patient presents for the follow-up on hyperlipidemia. He has been forgetting to take atorvastatin regularly but has been following low-cholesterol diet. [facility] Medical History Tubular adenoma Fatty liver Hyperlipidemia Toe pain, right Gout attack Annual physical exam Knee pain, left Surgical History Hx of colonoscopy H/O left knee surgery Family History Father Heart attack Diabetes Mother HTN (hypertension) Social History Housing: House Are you a primary youth care specialist to a significant other at home: No Do you presently have visiting nurse or other home services: No Patient Tobacco Use Status: Former Tobacco user Years Smoked: 20 years e-Cigarette/Vaping Use: Never Used service: No Current occupational status: employed Cognitive needs: No Hearing needs: No Vision needs: No Questionnaire Thrive Questionnaire Date Thrive assessed: 10/30/24 I am a: Patient What is your living situation today?: I have a steady place to live Within the past 12 months, did the food you bought not last and you didn't have the money to get more?: Never true Within the past 12 months, did you worry whether your food would run out before you got money to buy more?: Never true Do you have trouble paying for medicines?: No Do you have trouble getting transportation to medical appointments?: No Do you have trouble paying your heating and electricity bill?: No Do you have trouble taking care of your child, family member or friend?: No Do you have trouble with day-to-day activities such as bathing, preparing meals, shopping, managing finances, etc.?: No Are you currently unemployed and looking for a job?: No Are you interested in more education?: No Please select the resources that you would like help with: None Currently or been in a relationship where the following occur: No concerns reported THRIVE Score: 0 AZIZA-7 AMB Questionnaire AZIZA-7 Date AZIZA - 7 assessed: 10/30/24 Source: Developed by Drs. Robert Patel, Teri Avila, Aj Alfonso and colleagues, with an educational chaka from [employer]. Review of Systems Const All systems reviewed & are unremarkable except as noted in HPI and below Eyes Reports no additional complaints ENT Reports no additional complaints Card Reports no additional complaints Resp Reports no additional complaints GI Reports no additional complaints Reports no additional complaints Physical exam (Primary Care) Vital Signs: Last Vital Signs Temp 98.2 F 01/28/25 09:38 Pulse 77 01/28/25 09:38 Resp 18 01/28/25 09:38 BP 124/82 01/28/25 09:38 Pulse Ox 98 01/28/25 09:38 Oxygen Delivery Method Room Air 01/28/25 09:38 BMI result Body Mass Index 29.8 Tobacco/Smoking Status: Tobacco use Status Tobacco use date assessed 10/30/24 01/28/25 09:38 Patient Tobacco Use Status Former Tobacco user 01/28/25 09:38 e-Cigarette/Vaping Use Never Used 01/28/25 09:38 Thrive Assessment: Date of Thrive Assessment Date Thrive assessed 10/30/24 01/28/25 09:38 Currently or been in a relationship where the following occur: No concerns reported Const General: no acute distress HENMT Face and sinus: Yes normal facial exam Eyes General: appearance normal, both eyes and all related structures Neck Neck: Yes no lymphadenopathy and Yes supple Resp Effort & Inspection: normal respiratory effort Auscultation: clear to auscultation bilaterally Cardio Rhythm: regular rhythm Heart sounds: S1 normal heart sound present and S2 normal heart sound present GI Inspection: Yes normal to inspection Coding Level of Care Code Est Pt Level 3 (42181) Diagnoses Hyperlipidemia E78.5 Hyperglycemia R73.9 Assessment & Plan Assessment & Plan (1) Hyperlipidemia: Code(s): E78.5 - Hyperlipidemia, unspecified Category: Medical Plan: Medication compliance discussed with the patient continue atorvastatin (2) Hyperglycemia: Code(s): R73.9 - Hyperglycemia, unspecified Category: Medical Plan: A1c is 5.7, ADA diet regular exercise weight loss discussed with the patient follow-up in 6 months with a fasting labs before Orders: Orders Lipid Panel 6 Months E78.5 - Hyperlipidemia, unspecified, R73.9 - Hyperglycemia, unspecified Comprehensive [place]. Panel Fast 6 Months E78.5 - Hyperlipidemia, unspecified, R73.9 - Hyperglycemia, unspecified Hemoglobin A1c 6 Months R73.9 - Hyperglycemia, unspecified Medications: Refilled 2 atorvastatin 20 mg PO DAILY 90 tabs 3RF
[2025-01-28 09:38] VITALS: BP 124/82; PULSE 77; RESP 18; TEMP 36.8; O2SAT 98; BMI 29.8
--- OUTSIDE RECORDS SUMMARY | 2025-01-28 10:09 | XMS_ITS | Patient Health Record ---
Author Organization [facility] Address [address] [place] [address] Care Team Providers Care Finger Buff Sewer Name Role Phone Radha Herrera MD Primary Care Provider Erica Gallagher Unavailable [phone] Allergies No Known Allergies Reason For Referral [...] Problem Status W/U Status Risk Notes Problem [id number] Hallux valgus of right foot (M20.11) Active confirmed Problem Gout of right foot (M10.9) Active confirmed Rx drug management (4) Vital Signs Height 6 ft 3 in in 03/21/2024 Weight 220 lbs 03/21/2024 BMI 27.50 kg/m2 03/21/2024 Encounters Encounter Location Date Provider Diagnosis [facility] [address] [place] [address] 03/21/2024 Erica Perez Gout of right foot [...] End Date [employer] [address] [place] [address]001 Sreekanth Shahid Self - patient is the insured Medical (General) History Medical History History ICD Code Fatty liver hyperlipidemia tubular adenoma Gout toe pain, right knee pain, left Joint implants/screws Surgical History Surgery Date(Month/Year) colonoscopy 2019 left knee sx 1994
== END 2025-01-28 10:27 | disposition home or self-care (01) ==
LOC: HO.HMCC 09:34
PROVIDERS: PCP Internal Medicine; Visit Provider Internal Medicine
DX: E78.5 Hyperlipidemia, unspecified (principal); R73.9 Hyperglycemia, unspecified

== ENCOUNTER → 2025-01-28 09:33 | Outpatient (BNVA) | payer BC, SELFPAY | PROVIDERS: PCP Internal Medicine; Visit Provider Internal Medicine | DX: Z13.89 Encounter for screening for other disorder (principal) ==